=== PATIENT | female | born 1945 | race Caucasian/White ===

== ENCOUNTER 2017-10-15 09:42 | Inpatient (IN) | payer OTHER, MEDICARE ==
[2017-10-15 10:04] LABS: BASE EXCESS ABG 1 mmol/L (-3-3); HCO3 ABG 23 mmol/L (21-28); PCO2 ABG 30 mmHg (35-46); PH ABG 7.51 (7.35-7.45); PO2 ABG 64 mmHg (65-108); SAT O2 ABG 94 % (92-99)
[2017-10-15] MEDS: dilTIAZem IV PUSH 25 MG/5 ML VIAL IVP (10:08)
[2017-10-15] MEDS: DEXTROSE 5% IV (10:09)
[2017-10-15] MEDS: DILTIAZEM IV (10:09)
[2017-10-15 10:30] LABS: BASO # 0.1 x10^3/uL (0.0-0.2); BASO % 1 % (0-3); EOS % 0 % (0-3); HEMATOCRIT 43.6 % (36.0-47.0); HEMOGLOBIN 14.6 g/dL (12.0-15.5); LYMPH # 0.7 x10^3/uL (1.0-4.8); LYMPH % 4 % (24-48); MEAN CORPUSCULAR HEMOGLOBIN 32 pg (25-35); MEAN CORPUSCULAR HGB CONC 34 g/dL (31-37); MEAN CORPUSCULAR VOLUME 97 fL (79-100); MONO # 0.9 x10^3/uL (0.0-1.1); MONO % 5 % (0-9); NEUT # 14.7 x10^3uL (1.8-7.7); NEUT % 90 % (31-73); PLATELET COUNT 203 x10^3/uL (140-400); RED BLOOD COUNT 4.51 x10^6/uL (3.50-5.40); RED CELL DISTRIBUTION WIDTH 13.7 % (11.5-14.5); WHITE BLOOD COUNT 16.3 x10^3/uL (4.0-11.0)
[2017-10-15 10:32] LABS: ADD MAN DIFF? YES
[2017-10-15 10:36] LABS: ANION GAP 7 (6-14); BLOOD UREA NITROGEN 25 mg/dL (7-20); BUN/CREATININE RATIO 28 (6-20); CALCIUM 10.5 mg/dL (8.5-10.1); CARBON DIOXIDE 28 mmol/L (21-32); CHLORIDE 110 mmol/L (98-107); CREATININE 0.9 mg/dL (0.6-1.0); GFR 61.9; GLUCOSE 156 mg/dL (70-99); SODIUM 145 mmol/L (136-145)
[2017-10-15 10:39] LABS: INR 1.1 (0.8-1.1); PROTHROMBIN TIME PATIENT 13.6 SEC (11.7-14.0)
[2017-10-15 10:42] LABS: ALBUMIN 2.7 g/dL (3.4-5.0); ALBUMIN/GLOBULIN RATIO 0.8 (1.0-1.7); ALK PHOS 185 U/L (46-116); ALT (SGPT) 85 U/L (14-59); AST (SGOT) 35 U/L (15-37); TOTAL BILIRUBIN 0.6 mg/dL (0.2-1.0); TOTAL PROTEIN 6.3 g/dL (6.4-8.2)
[2017-10-15 10:45] LABS: LACTIC ACID 1.2 mmol/L (0.4-2.0)
[2017-10-15 10:51] LABS: NT-PRO BNP 1696 pg/mL (0-124); TROPONINI 1.744 ng/mL (0.000-0.055)
[2017-10-15] MEDS: DIGOXIN IV 500 MCG/2 ML AMPUL. IV (11:00)
[2017-10-15] MEDS ORDERED: ONDANSETRON PF 4 MG/2 ML VIAL. IV (11:30)
[2017-10-15 12:20] LABS: % BANDS 1 % (0-9); % LYMPHS 6 % (24-48); % MONOS 1 % (0-10); % SEGS 92 % (35-66); PLT ESTIMATE ADEQUATE (ADEQUATE)
[2017-10-15 15:11] LABS: TROPONINI 1.687 ng/mL (0.000-0.055)
[2017-10-15] MEDS: ESMOLOL 2500MG/250ML PREMIX 250 ML IV (17:24)
[2017-10-15 18:14] LABS: TROPONINI 1.519 ng/mL (0.000-0.055)
[2017-10-15 20:01] LABS: FREE T4 0.94 ng/dL (0.76-1.46)
[2017-10-15] MEDS: IV DEXTROSE 5% - 0.9 % NACL 1,000 ML IV (20:46)
[2017-10-15] MEDS: cefTRIAXone IV Push 1 GM VIAL. IVP (20:54)
[2017-10-15 22:13] LABS: BILIRUBIN,URINE NEGATIVE (NEG); CLARITY,URINE CLOUDY; COLOR,URINE YELLOW; GLUCOSE,URINE NEGATIVE (NEG); NITRITE,URINE POSITIVE (NEG); PH,URINE 8.5; PROTEIN,URINE 30 mg/dL (NEG-TRACE); UROBILINOGEN,URINE 0.2 mg/dL (0.2 mg/dL)
[2017-10-15 22:30] LABS: AMORPHOUS SEDIMENT,UR PRESENT /HPF; BACTERIA,URINE MOD /HPF (0-FEW); RBC,URINE OCC /HPF (0-2); SQUAMOUS EPITHELIAL CELL,UR OCC /LPF
[2017-10-16 04:40] LABS: ADD MAN DIFF? NO
[2017-10-16 05:34] LABS: BASO % 0 % (0-3); EOS % 0 % (0-3); HEMATOCRIT 44.2 % (36.0-47.0); HEMOGLOBIN 14.2 g/dL (12.0-15.5); LYMPH # 0.9 x10^3/uL (1.0-4.8); LYMPH % 7 % (24-48); MEAN CORPUSCULAR HEMOGLOBIN 32 pg (25-35); MEAN CORPUSCULAR HGB CONC 32 g/dL (31-37); MEAN CORPUSCULAR VOLUME 99 fL (79-100); MONO # 0.9 x10^3/uL (0.0-1.1); MONO % 6 % (0-9); NEUT # 12.4 x10^3uL (1.8-7.7); NEUT % 87 % (31-73); PLATELET COUNT 192 x10^3/uL (140-400); RED BLOOD COUNT 4.47 x10^6/uL (3.50-5.40); RED CELL DISTRIBUTION WIDTH 14.3 % (11.5-14.5); WHITE BLOOD COUNT 14.3 x10^3/uL (4.0-11.0)
[2017-10-16 06:10] LABS: ALBUMIN 2.7 g/dL (3.4-5.0); ALBUMIN/GLOBULIN RATIO 0.8 (1.0-1.7); ALK PHOS 163 U/L (46-116); ALT (SGPT) 78 U/L (14-59); ANION GAP 11 (6-14); AST (SGOT) 36 U/L (15-37); BLOOD UREA NITROGEN 23 mg/dL (7-20); BUN/CREATININE RATIO 33 (6-20); CALCIUM 10.2 mg/dL (8.5-10.1); CARBON DIOXIDE 25 mmol/L (21-32); CHLORIDE 108 mmol/L (98-107); CREATININE 0.7 mg/dL (0.6-1.0); GFR 82.7; GLUCOSE 45 mg/dL (70-99); SODIUM 144 mmol/L (136-145); TOTAL BILIRUBIN 0.6 mg/dL (0.2-1.0); TOTAL PROTEIN 6.1 g/dL (6.4-8.2)
[2017-10-16 06:20] LABS: POTASSIUM 5.1 mmol/L (3.5-5.1)
[2017-10-16] MEDS: IV DEXTROSE 5% - 0.9 % NACL 1,000 ML IV (08:50)
[2017-10-16] MEDS: ASCORBIC ACID 500 MG TABLET PO (16:47)
[2017-10-16] MEDS: MULTIVITAMIN with MINERAL TABLET. PO (16:47)
[2017-10-16] MEDS: METOPROLOL TART IMMED RELEASE 25 MG TABLET. PO (16:47)
[2017-10-16] MEDS: cefTRIAXone IV Push 1 GM VIAL. IVP (20:38)
[2017-10-17 04:32] LABS: ADD MAN DIFF? NO
[2017-10-17] MEDS: IV DEXTROSE 5% - 0.9 % NACL 1,000 ML IV ×2 (04:44→11:30)
[2017-10-17 05:06] LABS: BASO % 0 % (0-3); EOS % 0 % (0-3); HEMATOCRIT 45.2 % (36.0-47.0); HEMOGLOBIN 14.9 g/dL (12.0-15.5); LYMPH % 7 % (24-48); MEAN CORPUSCULAR HEMOGLOBIN 32 pg (25-35); MEAN CORPUSCULAR HGB CONC 33 g/dL (31-37); MEAN CORPUSCULAR VOLUME 97 fL (79-100); MONO # 0.9 x10^3/uL (0.0-1.1); MONO % 7 % (0-9); NEUT # 11.5 x10^3uL (1.8-7.7); NEUT % 86 % (31-73); PLATELET COUNT 200 x10^3/uL (140-400); RED BLOOD COUNT 4.68 x10^6/uL (3.50-5.40); RED CELL DISTRIBUTION WIDTH 13.6 % (11.5-14.5); WHITE BLOOD COUNT 13.4 x10^3/uL (4.0-11.0)
[2017-10-17 05:35] LABS: ANION GAP 8 (6-14); BLOOD UREA NITROGEN 12 mg/dL (7-20); CALCIUM 9.7 mg/dL (8.5-10.1); CARBON DIOXIDE 26 mmol/L (21-32); CHLORIDE 108 mmol/L (98-107); CREATININE 0.5 mg/dL (0.6-1.0); GLUCOSE 139 mg/dL (70-99); SODIUM 142 mmol/L (136-145)
[2017-10-17] MEDS: METOPROLOL TARTRATE 5 MG/5 ML VIAL. IVP (05:40)
[2017-10-17] MEDS: MULTIVITAMIN with MINERAL TABLET. PO (09:33)
[2017-10-17] MEDS: ASCORBIC ACID 500 MG TABLET PO (09:33)
[2017-10-17] MEDS: POTASSIUM CHLORIDE 20 MEQ TABLET.ER. PO (09:33)
[2017-10-17] MEDS: METOPROLOL TART IMMED RELEASE 25 MG TABLET. PO ×2 (09:33→17:42)
[2017-10-17] MEDS ORDERED: DOCUSATE SODIUM 100 MG CAPSULE. PO (14:00)
[2017-10-17] MEDS ORDERED: POLYVINYL ALCOHOL 1.4% OPHTH SOLUTION 15ML BOTTLE. OU (14:15)
[2017-10-17] MEDS: SERTRALINE 50 MG TABLET. PO (15:00)
[2017-10-17] MEDS: LUBIPROSTONE 8 MCG CAPSULE PO (17:42)
[2017-10-17] MEDS: ASPIRIN CHEWABLE 81 MG TABLET. PO (17:43)
[2017-10-17] MEDS: MIRTAZAPINE 15 MG TABLET PO (17:43)
[2017-10-17] MEDS: CEFPODOXIME PROXETIL 100 MG TABLET. PO (20:10)
[2017-10-17] MEDS: LACTOBACILLUS RHAMNOSUS GG 1 CAPSULE. PO (20:10)
[2017-10-17] MEDS: METOPROLOL TART IMMED RELEASE 50 MG TABLET. PO (20:10)
[2017-10-17] MEDS: IV NORMAL SALINE 1000ML BAG 1,000 ML IV (20:45)
[2017-10-17] MEDS ORDERED: NON FORMULARY ITEM (Lactobacillus Acidophilus (Probiotic) 1 EACH) PO (21:00)
[2017-10-18 05:35] LABS: ADD MAN DIFF? NO
[2017-10-18 05:54] LABS: BASO % 0 % (0-3); EOS % 0 % (0-3); HEMATOCRIT 42.9 % (36.0-47.0); LYMPH # 0.8 x10^3/uL (1.0-4.8); LYMPH % 6 % (24-48); MEAN CORPUSCULAR HEMOGLOBIN 32 pg (25-35); MEAN CORPUSCULAR HGB CONC 33 g/dL (31-37); MEAN CORPUSCULAR VOLUME 97 fL (79-100); MONO # 0.8 x10^3/uL (0.0-1.1); MONO % 7 % (0-9); NEUT # 10.4 x10^3uL (1.8-7.7); NEUT % 87 % (31-73); PLATELET COUNT 167 x10^3/uL (140-400); RED BLOOD COUNT 4.41 x10^6/uL (3.50-5.40); RED CELL DISTRIBUTION WIDTH 13.4 % (11.5-14.5); WHITE BLOOD COUNT 12.1 x10^3/uL (4.0-11.0)
[2017-10-18 06:27] LABS: ANION GAP 10 (6-14); BLOOD UREA NITROGEN 12 mg/dL (7-20); CALCIUM 9.5 mg/dL (8.5-10.1); CARBON DIOXIDE 23 mmol/L (21-32); CHLORIDE 113 mmol/L (98-107); CREATININE 0.5 mg/dL (0.6-1.0); GLUCOSE 119 mg/dL (70-99); POTASSIUM 3.5 mmol/L (3.5-5.1); SODIUM 146 mmol/L (136-145)
[2017-10-18] MEDS: METOPROLOL TARTRATE 5 MG/5 ML VIAL. IVP (06:59)
[2017-10-18] MEDS ORDERED: METOPROLOL TARTRATE 5 MG/5 ML VIAL. IVP (07:00)
[2017-10-18] MEDS: POLYETHYLENE GLYCOL 3350 17 GM PACKET. PO (09:00)
[2017-10-18] MEDS: ASCORBIC ACID 500 MG TABLET PO (09:11)
[2017-10-18] MEDS: ASPIRIN CHEWABLE 81 MG TABLET. PO (09:11)
[2017-10-18] MEDS: CEFPODOXIME PROXETIL 100 MG TABLET. PO ×2 (09:12→21:17)
[2017-10-18] MEDS: SERTRALINE 50 MG TABLET. PO (09:12)
[2017-10-18] MEDS: MULTIVITAMIN with MINERAL TABLET. PO (09:12)
[2017-10-18] MEDS: LACTOBACILLUS RHAMNOSUS GG 1 CAPSULE. PO ×2 (09:12→21:17)
[2017-10-18 10:22] LABS: PLT ESTIMATE ADEQUATE (ADEQUATE)
[2017-10-18] MEDS: SENNOSIDES 8.6 MG TABLET PO (10:36)
[2017-10-18] MEDS: IV NORMAL SALINE 1000ML BAG 1,000 ML IV ×2 (10:36→21:30)
[2017-10-18] MEDS: METOPROLOL TART IMMED RELEASE 50 MG TABLET. PO ×2 (10:37→21:18)
[2017-10-18] MEDS: MIRTAZAPINE 15 MG TABLET PO (17:47)
[2017-10-19 05:52] LABS: ADD MAN DIFF? NO
[2017-10-19 06:03] LABS: BASO % 0 % (0-3); EOS % 0 % (0-3); HEMATOCRIT 42.3 % (36.0-47.0); HEMOGLOBIN 14.1 g/dL (12.0-15.5); LYMPH # 0.9 x10^3/uL (1.0-4.8); LYMPH % 8 % (24-48); MEAN CORPUSCULAR HEMOGLOBIN 32 pg (25-35); MEAN CORPUSCULAR HGB CONC 33 g/dL (31-37); MEAN CORPUSCULAR VOLUME 97 fL (79-100); MONO # 0.6 x10^3/uL (0.0-1.1); MONO % 5 % (0-9); NEUT # 9.6 x10^3uL (1.8-7.7); NEUT % 86 % (31-73); PLATELET COUNT 186 x10^3/uL (140-400); RED BLOOD COUNT 4.35 x10^6/uL (3.50-5.40); RED CELL DISTRIBUTION WIDTH 13.6 % (11.5-14.5); WHITE BLOOD COUNT 11.1 x10^3/uL (4.0-11.0)
[2017-10-19 06:27] LABS: ANION GAP 6 (6-14); BLOOD UREA NITROGEN 10 mg/dL (7-20); CALCIUM 9.5 mg/dL (8.5-10.1); CARBON DIOXIDE 28 mmol/L (21-32); CHLORIDE 110 mmol/L (98-107); CREATININE 0.6 mg/dL (0.6-1.0); GFR 98.8; GLUCOSE 108 mg/dL (70-99); POTASSIUM 3.1 mmol/L (3.5-5.1); SODIUM 144 mmol/L (136-145)
[2017-10-19] MEDS: POLYETHYLENE GLYCOL 3350 17 GM PACKET. PO (09:00)
[2017-10-19] MEDS: ASCORBIC ACID 500 MG TABLET PO (09:13)
[2017-10-19] MEDS: ASPIRIN CHEWABLE 81 MG TABLET. PO (09:13)
[2017-10-19] MEDS: LACTOBACILLUS RHAMNOSUS GG 1 CAPSULE. PO ×2 (09:13→22:04)
[2017-10-19] MEDS: SERTRALINE 50 MG TABLET. PO (09:14)
[2017-10-19] MEDS: MULTIVITAMIN with MINERAL TABLET. PO (09:14)
[2017-10-19] MEDS: METOPROLOL TART IMMED RELEASE 50 MG TABLET. PO ×2 (09:14→22:05)
[2017-10-19] MEDS: CEFPODOXIME PROXETIL 100 MG TABLET. PO ×2 (09:14→22:04)
[2017-10-19] MEDS: IV NORMAL SALINE 1000ML BAG 1,000 ML IV (14:12)
[2017-10-19] MEDS: SENNOSIDES 8.6 MG TABLET PO (14:12)
[2017-10-19] MEDS: DIGOXIN IV 500 MCG/2 ML AMPUL. IV (17:14)
[2017-10-19] MEDS: MIRTAZAPINE 15 MG TABLET PO (18:00)
[2017-10-20] MEDS: IV NORMAL SALINE 1000ML BAG 1,000 ML IV (01:58)
[2017-10-20 05:45] LABS: ADD MAN DIFF? NO
[2017-10-20 05:48] LABS: BASO # 0.1 x10^3/uL (0.0-0.2); BASO % 1 % (0-3); EOS # 0.1 x10^3/uL (0.0-0.7); EOS % 1 % (0-3); HEMOGLOBIN 14.5 g/dL (12.0-15.5); LYMPH # 0.9 x10^3/uL (1.0-4.8); LYMPH % 7 % (24-48); MEAN CORPUSCULAR HEMOGLOBIN 32 pg (25-35); MEAN CORPUSCULAR HGB CONC 33 g/dL (31-37); MEAN CORPUSCULAR VOLUME 97 fL (79-100); MONO # 0.7 x10^3/uL (0.0-1.1); MONO % 6 % (0-9); NEUT # 10.6 x10^3uL (1.8-7.7); NEUT % 86 % (31-73); PLATELET COUNT 193 x10^3/uL (140-400); RED BLOOD COUNT 4.54 x10^6/uL (3.50-5.40); WHITE BLOOD COUNT 12.3 x10^3/uL (4.0-11.0)
[2017-10-20 06:10] LABS: ANION GAP 8 (6-14); BLOOD UREA NITROGEN 9 mg/dL (7-20); CALCIUM 9.4 mg/dL (8.5-10.1); CARBON DIOXIDE 27 mmol/L (21-32); CHLORIDE 109 mmol/L (98-107); CREATININE 0.6 mg/dL (0.6-1.0); GFR 98.8; GLUCOSE 116 mg/dL (70-99); POTASSIUM 3.5 mmol/L (3.5-5.1); SODIUM 144 mmol/L (136-145)
[2017-10-20] MEDS: POLYETHYLENE GLYCOL 3350 17 GM PACKET. PO (08:47)
[2017-10-20] MEDS: SERTRALINE 50 MG TABLET. PO (08:47)
[2017-10-20] MEDS: ASCORBIC ACID 500 MG TABLET PO (08:47)
[2017-10-20] MEDS: CEFPODOXIME PROXETIL 100 MG TABLET. PO (08:48)
[2017-10-20] MEDS: MULTIVITAMIN with MINERAL TABLET. PO (08:48)
[2017-10-20] MEDS: LACTOBACILLUS RHAMNOSUS GG 1 CAPSULE. PO (08:48)
[2017-10-20] MEDS: ASPIRIN CHEWABLE 81 MG TABLET. PO (08:48)
[2017-10-20] MEDS: SENNOSIDES 8.6 MG TABLET PO (08:48)
[2017-10-20] MEDS: METOPROLOL TART IMMED RELEASE 50 MG TABLET. PO (08:49)
[2017-10-20] MEDS: DIGOXIN 125 MCG TABLET. PO (08:49)
== END 2017-10-20 17:42 | disposition home or self-care (01) | DRG 308 ==
LOC: ER 09:42 → 2 SOUTH 11:00
PROC: 4B02XSZ Measurement of Cardiac Pacemaker, External Approach (ICD-10-PCS; principal; 2017-10-15)
DX: I48.0 Paroxysmal atrial fibrillation (principal); E43 Unspecified severe protein-calorie malnutrition; R65.10 Systemic inflammatory response syndrome (SIRS) of non-infectious origin without acute organ dysfunction; N39.0 Urinary tract infection, site not specified; I49.5 Sick sinus syndrome; F03.90 Unspecified dementia, unspecified severity, without behavioral disturbance, psychotic disturbance, mood disturbance, and anxiety; E86.0 Dehydration; K21.9 Gastro-esophageal reflux disease without esophagitis; E78.00 Pure hypercholesterolemia, unspecified; I10 Essential (primary) hypertension; J45.909 Unspecified asthma, uncomplicated; M19.90 Unspecified osteoarthritis, unspecified site; Z82.49 Family history of ischemic heart disease and other diseases of the circulatory system; Z86.73 Personal history of transient ischemic attack (TIA), and cerebral infarction without residual deficits; Z87.440 Personal history of urinary (tract) infections; Z95.0 Presence of cardiac pacemaker; Z90.710 Acquired absence of both cervix and uterus; Z88.2 Allergy status to sulfonamides; Z88.8 Allergy status to other drugs, medicaments and biological substances; Z91.011 Allergy to milk products
CPT/HCPCS: 36415; 36600; 70450; 71045; 76856; 80048; 80053; 81001; 82805; 83605; 83880; 84439; 84484; 85007; 85025; 85610; 87040; 87086; 93005; 93306; 96365; 96374; 96375; 97110-GO; 97110-GP; 97162-GP; 97165-GO; 97530-GP; 97535-GO; 99285; 99285-25; J0696; J1160; J3490; J7030; J7042

== ENCOUNTER 2017-11-09 13:30 | Inpatient (IN) | payer OTHER ==
[2017-11-09 14:35] LABS: ADD MAN DIFF? NO
[2017-11-09 14:38] LABS: BASO # 0.1 x10^3/uL (0.0-0.2); BASO % 0 % (0-3); BILIRUBIN,URINE NEGATIVE (NEG); CLARITY,URINE CLEAR; COLOR,URINE YELLOW; EOS # 0.1 x10^3/uL (0.0-0.7); EOS % 0 % (0-3); GLUCOSE,URINE NEGATIVE (NEG); HEMATOCRIT 45.6 % (36.0-47.0); HEMOGLOBIN 15.5 g/dL (12.0-15.5); LYMPH # 1.2 x10^3/uL (1.0-4.8); LYMPH % 8 % (24-48); MEAN CORPUSCULAR HEMOGLOBIN 33 pg (25-35); MEAN CORPUSCULAR HGB CONC 34 g/dL (31-37); MEAN CORPUSCULAR VOLUME 96 fL (79-100); MONO # 1.5 x10^3/uL (0.0-1.1); MONO % 11 % (0-9); NEUT # 11.4 x10^3uL (1.8-7.7); NEUT % 80 % (31-73); NITRITE,URINE NEGATIVE (NEG); PLATELET COUNT 234 x10^3/uL (140-400); PROTEIN,URINE 30 mg/dL (NEG-TRACE); RED BLOOD COUNT 4.74 x10^6/uL (3.50-5.40); RED CELL DISTRIBUTION WIDTH 14.4 % (11.5-14.5); UROBILINOGEN,URINE 0.2 mg/dL (0.2 mg/dL); WHITE BLOOD COUNT 14.2 x10^3/uL (4.0-11.0)
[2017-11-09 14:48] LABS: ANION GAP 9 (6-14); BLOOD UREA NITROGEN 21 mg/dL (7-20); CALCIUM 10.4 mg/dL (8.5-10.1); CARBON DIOXIDE 30 mmol/L (21-32); CHLORIDE 104 mmol/L (98-107); CREATININE 0.8 mg/dL (0.6-1.0); GFR 70.9; GLUCOSE 118 mg/dL (70-99); POTASSIUM 4.7 mmol/L (3.5-5.1); SODIUM 143 mmol/L (136-145)
[2017-11-09 14:54] LABS: BACTERIA,URINE 0 /HPF (0-FEW); HYALINE CASTS, URINE OCCASIONAL /HPF; SQUAMOUS EPITHELIAL CELL,UR OCC /LPF; YEAST,URINE PRESENT /HPF
[2017-11-09 14:56] LABS: ALK PHOS 306 U/L (46-116); ALT (SGPT) 82 U/L (14-59); AST (SGOT) 53 U/L (15-37); DIRECT BILIRUBIN 0.2 mg/dL (0.0-0.2); LIPASE 120 U/L (73-393); TOTAL BILIRUBIN 0.6 mg/dL (0.2-1.0); TOTAL PROTEIN 6.5 g/dL (6.4-8.2)
[2017-11-09 14:58] LABS: TROPONINI < 0.017 ng/mL (0.000-0.055)
[2017-11-09] MEDS ORDERED: MORPHINE SULFATE 4 MG/ML DISP.SYRIN. IV ×2 (15:15→15:30)
[2017-11-09] MEDS ORDERED: ONDANSETRON PF 4 MG/2 ML VIAL. IV ×2 (15:15→15:30)
[2017-11-09] MEDS: IV NORMAL SALINE 1000ML BAG 1,000 ML IV ×2 (15:26→17:48)
[2017-11-09] MEDS: METOPROLOL TARTRATE 5 MG/5 ML VIAL. IVP (15:26)
[2017-11-09] MEDS ORDERED: traMADol 50 MG TABLET PO (15:30)
[2017-11-09] MEDS ORDERED: ACETAMINOPHEN 325 MG TABLET. PO (15:30)
[2017-11-09] MEDS ORDERED: hydrALAZINE 20 MG/ML VIAL. IVP (15:30)
[2017-11-09] MEDS ORDERED: DOCUSATE SODIUM 100 MG CAPSULE. PO (15:30)
[2017-11-09 15:47] LABS: OVALOCYTES OCC; PLT ESTIMATE ADEQUATE (ADEQUATE); STOMATOCYTES OCC
[2017-11-09] MEDS: DIGOXIN IV 500 MCG/2 ML AMPUL. IV (16:15)
[2017-11-09 16:31] LABS: MAGNESIUM 2.3 mg/dL (1.8-2.4)
[2017-11-09 16:44] LABS: NT-PRO BNP 1295 pg/mL (0-124)
[2017-11-09] MEDS: ENOXAPARIN 40 MG/0.4 ML SYRINGE. SQ (17:48)
[2017-11-09] MEDS: METOPROLOL TART IMMED RELEASE 50 MG TABLET. PO (21:00)
[2017-11-10] MEDS: IV NORMAL SALINE 1000ML BAG 1,000 ML IV (03:22)
[2017-11-10 04:40] LABS: ADD MAN DIFF? NO
[2017-11-10 05:00] LABS: BASO % 0 % (0-3); EOS # 0.1 x10^3/uL (0.0-0.7); EOS % 1 % (0-3); HEMATOCRIT 41.4 % (36.0-47.0); LYMPH % 9 % (24-48); MEAN CORPUSCULAR HEMOGLOBIN 33 pg (25-35); MEAN CORPUSCULAR HGB CONC 34 g/dL (31-37); MEAN CORPUSCULAR VOLUME 96 fL (79-100); MONO # 0.9 x10^3/uL (0.0-1.1); MONO % 9 % (0-9); NEUT # 8.3 x10^3uL (1.8-7.7); NEUT % 81 % (31-73); PLATELET COUNT 166 x10^3/uL (140-400); RED BLOOD COUNT 4.31 x10^6/uL (3.50-5.40); RED CELL DISTRIBUTION WIDTH 14.1 % (11.5-14.5); WHITE BLOOD COUNT 10.2 x10^3/uL (4.0-11.0)
[2017-11-10 05:11] LABS: ANION GAP 5 (6-14); BLOOD UREA NITROGEN 14 mg/dL (7-20); CALCIUM 9.1 mg/dL (8.5-10.1); CARBON DIOXIDE 27 mmol/L (21-32); CHLORIDE 108 mmol/L (98-107); CREATININE 0.5 mg/dL (0.6-1.0); GLUCOSE 109 mg/dL (70-99); POTASSIUM 3.4 mmol/L (3.5-5.1); SODIUM 140 mmol/L (136-145)
[2017-11-10] MEDS: ASPIRIN ENTERIC COATED 81 MG TABLET.DR. PO (08:00)
[2017-11-10] MEDS: DIGOXIN IV 500 MCG/2 ML AMPUL. IV (08:51)
[2017-11-10] MEDS: METOPROLOL TART IMMED RELEASE 50 MG TABLET. PO (08:53)
[2017-11-10] MEDS ORDERED: DIGOXIN 125 MCG TABLET. PO (09:00)
[2017-11-10] MEDS: cefTRIAXone IV Push 1 GM VIAL. IVP (14:29)
[2017-11-10] MEDS: METOPROLOL TARTRATE 5 MG/5 ML VIAL. IVP ×2 (14:29→17:40)
[2017-11-10] MEDS: ASPIRIN 300 MG SUPP.RECT PR (14:30)
[2017-11-10] MEDS: ENOXAPARIN 40 MG/0.4 ML SYRINGE. SQ (17:23)
[2017-11-10 23:13] LABS: MRSA BY PCR Negative (Negative)
[2017-11-11] MEDS: METOPROLOL TARTRATE 5 MG/5 ML VIAL. IVP ×4 (05:35→17:24)
[2017-11-11 06:35] LABS: ADD MAN DIFF? NO
[2017-11-11 06:41] LABS: BASO % 1 % (0-3); EOS % 0 % (0-3); HEMATOCRIT 46.4 % (36.0-47.0); HEMOGLOBIN 15.9 g/dL (12.0-15.5); LYMPH # 0.9 x10^3/uL (1.0-4.8); LYMPH % 9 % (24-48); MEAN CORPUSCULAR HEMOGLOBIN 33 pg (25-35); MEAN CORPUSCULAR HGB CONC 34 g/dL (31-37); MEAN CORPUSCULAR VOLUME 96 fL (79-100); MONO # 0.6 x10^3/uL (0.0-1.1); MONO % 7 % (0-9); NEUT # 8.1 x10^3uL (1.8-7.7); NEUT % 84 % (31-73); PLATELET COUNT 203 x10^3/uL (140-400); RED BLOOD COUNT 4.84 x10^6/uL (3.50-5.40); RED CELL DISTRIBUTION WIDTH 14.2 % (11.5-14.5); WHITE BLOOD COUNT 9.7 x10^3/uL (4.0-11.0)
[2017-11-11 07:20] LABS: ANION GAP 15 (6-14); BLOOD UREA NITROGEN 15 mg/dL (7-20); CALCIUM 9.7 mg/dL (8.5-10.1); CARBON DIOXIDE 22 mmol/L (21-32); CHLORIDE 105 mmol/L (98-107); GLUCOSE 94 mg/dL (70-99); POTASSIUM 3.3 mmol/L (3.5-5.1); SODIUM 142 mmol/L (136-145)
[2017-11-11 07:42] LABS: CREATININE 0.6 mg/dL (0.6-1.0); GFR 98.8
[2017-11-11] MEDS: ASPIRIN 300 MG SUPP.RECT PR (09:12)
[2017-11-11] MEDS: DIGOXIN IV 500 MCG/2 ML AMPUL. IV (09:16)
[2017-11-11] MEDS: cefTRIAXone IV Push 1 GM VIAL. IVP (11:55)
[2017-11-11] MEDS: AMIODARONE 900 MG in IV DEXTROSE 5% 500 ML IV (11:56)
[2017-11-11] MEDS: ENOXAPARIN 40 MG/0.4 ML SYRINGE. SQ (16:00)
[2017-11-11] MEDS: POTASSIUM CHLORIDE 20 MEQ in IV DEXTROSE 5 %-0.2 % NACL 250 ML IV (20:07)
[2017-11-12] MEDS: METOPROLOL TARTRATE 5 MG/5 ML VIAL. IVP ×3 (05:45→12:00)
[2017-11-12] MEDS: ASPIRIN 300 MG SUPP.RECT PR (09:40)
[2017-11-12] MEDS: DIGOXIN IV 500 MCG/2 ML AMPUL. IV (09:40)
[2017-11-12] MEDS: cefTRIAXone IV Push 1 GM VIAL. IVP (11:30)
== END 2017-11-12 14:30 | disposition home or self-care (01) | DRG 872 ==
LOC: ER 13:30 → 2 NORTH 16:18
DX: A41.9 Sepsis, unspecified organism (principal); I48.2 Chronic atrial fibrillation; I69.359 Hemiplegia and hemiparesis following cerebral infarction affecting unspecified side; N19 Unspecified kidney failure; E83.52 Hypercalcemia; R13.10 Dysphagia, unspecified; N39.0 Urinary tract infection, site not specified; I69.320 Aphasia following cerebral infarction; E78.00 Pure hypercholesterolemia, unspecified; E78.5 Hyperlipidemia, unspecified; I10 Essential (primary) hypertension; H91.90 Unspecified hearing loss, unspecified ear; J45.20 Mild intermittent asthma, uncomplicated; K21.9 Gastro-esophageal reflux disease without esophagitis; Z51.5 Encounter for palliative care; Z66 Do not resuscitate; Z74.01 Bed confinement status; Z82.49 Family history of ischemic heart disease and other diseases of the circulatory system; Z90.710 Acquired absence of both cervix and uterus; Z95.0 Presence of cardiac pacemaker; M19.90 Unspecified osteoarthritis, unspecified site; Z98.49 Cataract extraction status, unspecified eye; Z88.2 Allergy status to sulfonamides; Z88.8 Allergy status to other drugs, medicaments and biological substances; Z88.1 Allergy status to other antibiotic agents; Z91.011 Allergy to milk products
CPT/HCPCS: 36415; 71045; 80048; 80076; 80162; 81001; 83690; 83735; 83880; 84484; 85025; 87086; 87641; 92526-GN; 92610-GN; 93005; 96365; 96375; 99285-25; J0282; J0690; J0696; J1160; J1650; J3490; J7030